=== PATIENT | female | born 1990 | race American Indian/Alaskan Native ===

== ENCOUNTER 2016-09-09 18:52 | Outpatient (CLI) | payer MEDICAID ==
[2016-09-09 19:44] VITALS: BP 114/73
[2016-09-09] MEDS ORDERED: LACTATED RINGERS 1,000 ML IV ONE (19:51)
[2016-09-09 20:49] LABS: Bacteria,Urine 1+ /HPF (Negative); Bilirubin,Urine NEG (Negative); Blood,Urine NEG (Negative); Ketones,Urine NEG (Negative); Leukocyte Esterase,Urine NEG (Negative); Mucus,Urine 2+ /HPF; Nitrite,Urine NEG (Negative); Protein,Urine <15 mg/dL mg/dL (Negative); Urobilinogen,Urine < 2.0 mg/dL (<2.0); WBC,Urine < 1.0 /HPF (0.0-6.0)
== END 2016-09-09 21:20 | disposition home or self-care (01) ==
LOC: TRG 18:52
PROVIDERS: ATTEND Obstetrics & Gynecology
DX: O47.03 False labor before 37 completed weeks of gestation, third trimester (principal); Z87.891 Personal history of nicotine dependence; Z3A.33 33 weeks gestation of pregnancy
CPT/HCPCS: 59025; 81001; J7120

== ENCOUNTER 2016-10-04 22:35 | Outpatient (CLI) | payer MEDICAID ==
[2016-10-04 22:52] VITALS: BP 110/70
[2016-10-04] MEDS ORDERED: LACTATED RINGERS 1,000 ML IV ONE (23:09)
== END 2016-10-04 23:41 | disposition home or self-care (01) ==
LOC: TRG 22:35
PROVIDERS: ATTEND Obstetrics & Gynecology
DX: Z34.93 Encounter for supervision of normal pregnancy, unspecified, third trimester (principal); Z87.891 Personal history of nicotine dependence; Z3A.37 37 weeks gestation of pregnancy
CPT/HCPCS: 59025; 96360; J7120

== ENCOUNTER 2017-02-06 10:26 | Emergency (ER) | payer MEDICAID ==
[2017-02-06 10:37] VITALS: BP 127/77
[2017-02-06 11:16] LABS: Bacteria,Urine 1+ /HPF (Negative); Bilirubin,Urine NEG (Negative); Blood,Urine MOD (Negative); Ketones,Urine TR mg/dL (Negative); Leukocyte Esterase,Urine SM (Negative); Mucus,Urine 3+ /HPF; Nitrite,Urine NEG (Negative); Urobilinogen,Urine < 2.0 mg/dL (<2.0)
[2017-02-06 12:12] LABS: Basophils % (Auto) 0.6 % (0.0-1.8); Eosinophils % (Auto) 2.2 % (0.0-4.3); Hematocrit 38.8 % (30.3-42.9); Mean Corpuscular HGB Conc 33 % (30-34); Mean Corpuscular Hemoglobin 30 pg (28-32); Mean Corpuscular Volume 91 fl (79-97); Platelet Count 294 K/mm3 (140-440); Red Blood Count 4.29 M/mm3 (3.65-5.03); Red Cell Distribution Width 13.7 % (13.2-15.2); White Blood Count 5.8 K/mm3 (4.5-11.0)
--- NOTE | 2017-02-06 16:19 | Ultrasound Report ---
FINAL REPORT PROCEDURE: US OB TRANSVAGINAL TECHNIQUE: Real-time transvaginal sonography of the uterus, placenta, amniotic fluid, adnexa, and fetus was performed with image documentation. Measurements were obtained to determine age/size. M-mode Doppler was used to document heartbeat. CPT 80414 HISTORY: VAG BLEED IN PREG COMPARISON: Transabdominal OB ultrasound also performed today. FINDINGS: The report for this exam was generated using images from both the transabdominal and a transvaginal OB ultrasound both of which were performed today. There is a single living intrauterine gestation currently visualized with a heart rate of 120 beats per minute. Small subchorionic hemorrhage does appear to be present. This measures 1.4 x 1.0 centimeters. Shape of the gestational sac appears normal. The amount of amniotic fluid appears normal. Yolk sac is visualized. Fetus currently too small to assess anatomy. No gross abnormality is visualized. [place]-rump length measurement of the fetus is 4.4 millimeters corresponding to an age is 6 week 1 day. Right and left ovaries are unremarkable. No abnormal cystic or solid masses are seen in the right or left adnexa. IMPRESSION: There is a single living intrauterine gestation visualized. By [place]-rump length measurement estimated age is 6 week 1 day. This places the EDC at 10/01/2017 plus or minus 0.5 weeks. Fetus currently too small to assess anatomy. No gross abnormality is identified. Small subchorionic hemorrhage present as described above. No other abnormalities are identified.
--- NOTE | 2017-02-06 16:21 | Ultrasound Report ---
FINAL REPORT PROCEDURE: US OB < = 14 WEEKS FETUS TECHNIQUE: Real-time transabdominal sonography of the uterus, placenta, amniotic fluid, adnexa, and fetus was performed with image documentation. Measurements were obtained to determine age/size. M-mode Doppler was used to document heartbeat. CPT 24723 HISTORY: . Vaginal bleeding. COMPARISON: Transvaginal OB ultrasound also performed today. FINDINGS: The report for this exam was generated using images from both the transabdominal and a transvaginal OB ultrasound both of which were performed today. There is a single living intrauterine gestation currently visualized with a heart rate of 120 beats per minute. Small subchorionic hemorrhage does appear to be present. This measures 1.4 x 1.0 centimeters. Shape of the gestational sac appears normal. The amount of amniotic fluid appears normal. Yolk sac is visualized. Fetus currently too small to assess anatomy. No gross abnormality is visualized. [place]-rump length measurement of the fetus is 4.4 millimeters corresponding to an age is 6 week 1 day. Right and left ovaries are unremarkable. No abnormal cystic or solid masses are seen in the right or left adnexa. IMPRESSION: There is a single living intrauterine gestation visualized. By crown-rump length measurement estimated age is 6 week 1 day. This places the EDC at 10/01/2017 plus or minus 0.5 weeks. Fetus currently too small to assess anatomy. No gross abnormality is identified. Small subchorionic hemorrhage present as described above. Amount of amniotic fluid appears normal. No other abnormalities are identified.
[2017-02-06 16:31] LABS: Alanine Aminotransferase 13 units/L (7-56); Albumin 4.6 g/dL (3.9-5); Albumin/Globulin Ratio 1.6 %; Alkaline Phosphatase 49 units/L (35-129); Anion Gap 21 mmol/L; BUN/Creatinine Ratio 32; Blood Urea Nitrogen 16 mg/dL (7-17); Carbon Dioxide 23 mmol/L (22-30); Chloride 96.8 mmol/L (98-107); Glucose 84 mg/dL (65-100); Sodium 137 mmol/L (137-145); Total Protein 7.4 g/dL (6.3-8.2)
== END 2017-02-06 15:20 | disposition left against medical advice (07) ==
LOC: ED 10:26
DX: Z53.21 Procedure and treatment not carried out due to patient leaving prior to being seen by health care provider (principal)
CPT/HCPCS: 36415; 76801; 76817; 80053; 81001; 84702; 85025; 86850; 86900; 86901

== ENCOUNTER 2019-01-24 21:01 | Emergency (ER) | payer MEDICAID ==
[2019-01-24 22:25] VITALS: BP 125/92
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
[2019-01-24] MEDS ORDERED: IBUPROFEN 600 MG TAB PO ONE ×2 (22:29→22:31)
[2019-01-24] MEDS ORDERED: HYDROcodone/ACETAMINOPHEN 10-325MG TAB PO ONE (23:09)
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
--- NOTE | 2019-01-24 23:42 | XRay Report ---
LEFT WRIST 3 VIEW(S) INDICATION / CLINICAL INFORMATION: left wrist injury and pain with swelling. COMPARISON: None available. FINDINGS: Acute, comminuted, intra-articular fracture of the distal radius. Ulnar styloid is intact. No fractur e of the scaphoid or other carpal bones is identified. There is no significant angulation of the charlie cular surface and only minimal impaction of the fracture fragments. Expected regional soft tissue swe lling is present. The distal radioulnar joint may be minimally widened. Signer Name: Nikhil Moreno MD Signed: 01/24/2019 11:38 PM Workstation Name: [id number]
== END 2019-01-25 00:45 | disposition home or self-care (01) ==
LOC: ED 21:01
DX: S52.572A Other intraarticular fracture of lower end of left radius, initial encounter for closed fracture (principal); J45.909 Unspecified asthma, uncomplicated; F17.200 Nicotine dependence, unspecified, uncomplicated; Y04.8XXA Assault by other bodily force, initial encounter; Y93.89 Activity, other specified; Y92.009 Unspecified place in unspecified non-institutional (private) residence as the place of occurrence of the external cause; Y99.8 Other external cause status